=== PATIENT | male | born 2000 | race African-American/Black ===

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

== ENCOUNTER 2020-08-04 15:35 | Emergency (ER) | payer SELFPAY ==
--- NOTE | 2020-08-04 16:35 | ER Document Report ---
ED Medical Screen (RME) - General Chief Complaint: Abdominal Pain Stated Complaint: ABDOMINAL PAIN Time Seen by Provider: 08/04/20 16:27 Primary Care Provider: JESUS GONZALEZ MD [Primary Care Provider] - Follow up as needed Mode of Arrival: Ambulatory Information source: Patient TRAVEL OUTSIDE OF THE [place] IN LAST 30 DAYS: No - HPI Patient complains to provider of: Abdominal pain Notes: 08/04/20 16:33 Patient with complaints of left lower quadrant abdominal pain. States pain is been present for the last 1 to 2 weeks. Pain is constant. Pain is worse when he laughs or moves a certain way. He denies any fever. He denies any nausea, vomiting, diarrhea. No dysuria or hematuria. No prior abdominal surgeries. No history of kidney stones. Exam: Nontoxic, no distress. Lungs clear and equal throughout. Tenderness to palpation of the left lower quadrant and low mid abdomen. An initial examination was made on the patient as part of the triage process, and it was determined a more comprehensive evaluation was necessary. Initial orders were placed and patient was transferred to another provider in the ED who assumed care and finished evaluation and plan. - Related Data Allergies/Adverse Reactions: No Known Allergies Allergy (Verified 05/27/17 13:20) Past Medical History Pulmonary Medical History: Reports: Hx Asthma Renal/ Medical History: Denies: Hx Peritoneal Dialysis - Immunizations Immunizations up to date: Yes Hx Diphtheria, Pertussis, Tetanus Vaccination: Yes Physical Exam - Vital signs Vitals: Temp Pulse Resp BP Pulse Ox 98.9 F 86 16 140/62 H 100 08/04/20 16:11 08/04/20 16:11 08/04/20 16:11 08/04/20 16:11 08/04/20 16:11 Course - Vital Signs Vital signs: Temp Pulse Resp BP Pulse Ox 98.9 F 86 16 140/62 H 100 08/04/20 16:11 08/04/20 16:11 08/04/20 16:11 08/04/20 16:11 08/04/20 16:11 Doctor's Discharge - Discharge Referrals: JESUS GONZALEZ MD [Primary Care Provider] - Follow up as needed
[2020-08-04 17:21] LABS: ABSOLUTE BASOPHILS # (AUTO) 0.1 10^3/uL (0.0-0.2); ABSOLUTE EOSINOPHILS # (AUTO) 0.1 10^3/uL (0.0-0.6); ABSOLUTE LYMPHOCYTES (AUTO) 1.5 10^3/uL (0.5-4.7); ABSOLUTE MONOCYTES (AUTO) 0.6 10^3/uL (0.1-1.4); ABSOLUTE NEUT (AUTO) 5.1 10^3/uL (1.7-8.2); BASOPHILS % (AUTO) 1.2 % (0-2); EOSINOPHILS % (AUTO) 0.9 % (0-6); HEMATOCRIT 42.1 % (37.9-51.0); LYMPHOCYTES % (AUTO) 20.4 % (13-45); MEAN CORPUSCULAR HEMOGLOBIN 28.5 pg (27.0-33.4); MEAN CORPUSCULAR HGB CONC 33.4 g/dL (32.0-36.0); MEAN CORPUSCULAR VOLUME 85 fl (80-97); MONOCYTES % (AUTO) 8.5 % (3-13); PLATELET COUNT 216 10^3/uL (150-450); RED BLOOD COUNT 4.94 10^6/uL (4.35-5.55); RED CELL DISTRIBUTION WIDTH 14.5 % (11.5-14.0); TOTAL CELLS COUNTED % (AUTO) 100 %; WHITE BLOOD COUNT 7.5 10^3/uL (4.0-10.5)
[2020-08-04 17:40] LABS: APPEARANCE,URINE SLIGHTLY-CLOUDY; BILIRUBIN,URINE NEGATIVE (NEGATIVE); COLOR,URINE AMBER; GLUCOSE, URINE NEGATIVE (NEGATIVE); KETONES,URINE NEGATIVE (NEGATIVE); LEUKOCYTE ESTERASE,URINE NEGATIVE (NEGATIVE); NITRITE,URINE NEGATIVE (NEGATIVE); PROTEIN,URINE 100 mg/dL (NEGATIVE); URINE SPECIFIC GRAVITY 1.032
[2020-08-04 17:45] LABS: ALBUMIN 4.1 g/dL (3.5-5.0); ALKALINE PHOSPHATASE 68 U/L (38-126); ANION GAP 5 (5-19); ASPARTATE AMINO TRANSFERASE 20 U/L (17-59); BILIRUBIN,TOTAL 0.6 mg/dL (0.2-1.3); BLOOD UREA NITROGEN 12 mg/dL (7-20); CALCIUM 9.6 mg/dL (8.4-10.2); CARBON DIOXIDE 32 mmol/L (22-30); CHLORIDE 102 mmol/L (98-107); GLUCOSE 81 mg/dL (75-110); POTASSIUM 3.7 mmol/L (3.6-5.0)
[2020-08-04] MEDS ORDERED: KETOROLAC TROMETHAMINE INJ/PF 30 MG/1 ML SDV IV ONE (19:28)
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
--- NOTE | 2020-08-04 20:53 | RADIOLOGY REPORT (SQ) ---
EXAM DESCRIPTION: CT ABD/PELVIS WITH IV ONLY CLINICAL HISTORY: 20 years Male; LLQ tenderness TECHNIQUE: CT of the abdomen and pelvis with intravenous contrast.. Oral contrastWas not used. Delayed imaging of the abdomen and pelvis was also performed. All CT scans at this facility use dose modulation, iterative reconstruction, and/or weight based dosing when appropriate to reduce radiation dose to as low as reasonably achievable. This exam was performed according to our department optimization program which includes automated exposure control, adjustment of the mA and/or kv according to patient size and/or use of iterative reconstruction technique. COMPARISON: None. FINDINGS: Lower chest:The lung bases are clear. The visualized portion of heart and great vessels are normal. Abdomen: Visualization of the intra-abdominal contents is somewhat limited secondary to lack of body fat and crowding of the structures is a muscle hypertrophy. Liver and biliary tree:The liver and gallbladder appear normal. Portal vein is patent. Hepatic veins are not yet opacified. No biliary dilatation. Pancreas: Normal Spleen:Within normal limits Kidneys: Kidneys are normal in size, shape and position. No stones. No mass or hydronephrosis. Symmetric renal enhancement. Adrenal glands:Within normal limits Vascular structures:Within normal limits Retroperitoneum: No mass or lymphadenopathy Abdominal wall: In the left anterior thigh muscles is a large fat-containing mass measuring 12.0 x 5.8 x 7.8 cm. This appears to be a lipoma located in the region of the rectus femoris. GI:Bowel is of normal caliber. No focal bowel wall thickening. No obstruction. Appendix: The appendix is not clearly seen General: No free air. No free fluid Pelvis: Lymph nodes: No mass or lymphadenopathy Bladder: The bladder is mostly empty Pelvis: No pelvic mass or adenopathy. Bones: No acute bone findings. IMPRESSION: 1. 12.0 x 5.8 x 7.8 cm fatty mass in the anterior left thigh within the rectus femoris muscle. This is consistent with a lipoma. 2. No acute process is seen in the abdomen or pelvis.
[2020-08-04 21:19] VITALS: BP 138/69
== END 2020-08-04 21:20 | disposition home or self-care (01) ==
LOC: ER 15:35
DX: R10.32 Left lower quadrant pain (principal); D17.24 Benign lipomatous neoplasm of skin and subcutaneous tissue of left leg; J45.909 Unspecified asthma, uncomplicated
CPT/HCPCS: 99285; 96374; 36415; 83690; 85025; 80053; 81001; 74177; J1885